=== PATIENT | male | born 1960 | race African-American/Black ===

== ENCOUNTER 2018-07-14 10:48 | Emergency (ER) | payer SELFPAY ==
[~2018-07-14] VITALS: Ht 165.1 cm; Wt 61.0 kg
[2018-07-14 12:54] VITALS: BP 97/51
== END 2018-07-14 12:56 | disposition home or self-care (01) ==
LOC: ER 11:09
DX: Z76.0 Encounter for issue of repeat prescription (principal); G89.29 Other chronic pain; I69.354 Hemiplegia and hemiparesis following cerebral infarction affecting left non-dominant side; R03.0 Elevated blood-pressure reading, without diagnosis of hypertension; F12.90 Cannabis use, unspecified, uncomplicated
CPT/HCPCS: 99283

== ENCOUNTER 2023-11-13 19:08 | Emergency (ER) | payer MEDICARE, BC ==
[~2023-11-13] VITALS: Ht 175.3 cm; Wt 73.0 kg
[2023-11-13 19:23] VITALS: TEMP 98.6; O2SAT 98
[2023-11-14 00:30] VITALS: BP 108/69; PULSE 91; RESP 18
[2023-11-14] MEDS ORDERED: HYDROCODONE/ACETAMINOPHEN 5/325MG TABLET PO ONE (00:30)
[2023-11-14] MEDS ORDERED: NAPR500T7 MT (00:33)
== END 2023-11-14 01:28 | disposition home or self-care (01) ==
LOC: ER 19:08
DX: M79.602 Pain in left arm (principal); G89.29 Other chronic pain; F12.10 Cannabis abuse, uncomplicated; Z86.73 Personal history of transient ischemic attack (TIA), and cerebral infarction without residual deficits
CPT/HCPCS: 99283

== ENCOUNTER 2023-12-22 23:19 | Inpatient (IN) | payer MEDICARE, MEDICAID ==
[~2023-12-22] VITALS: Ht 167.6 cm; Wt 53.5 kg
[~2023-12-22 23:19] MED LIST: NAPR500T7 MT
[2023-12-22] MEDS ORDERED: ONDANSETRON HCL 4MG/2ML INJ IV STA (23:26)
[2023-12-22] MEDS ORDERED: PANTOPRAZOLE SODIUM 40 MG/VIAL IV ONE (23:30)
[2023-12-22] MEDS ORDERED: SODIUM CHLORIDE 0.9% 1,000 ML IV ONE (23:30)
[2023-12-22 23:47] LABS: HEMOGLOBIN. 9.6 g/dL (14.0-18.0); MEAN CORPUSCULAR HEMOGLOBIN 31.8 pg (28.0-32.0); MEAN CORPUSCULAR VOLUME 96.2 fL (80.0-94.0); MEAN PLATELET VOLUME 9.9 fl (7.4-10.4); PLATELET 200 x1000/uL (130-400); RED BLOOD CELL COUNT 3.01 mill/uL (4.7-6.1); WHITE BLOOD COUNT 4.5 x1000/uL (4.5-11.0)
[2023-12-22 23:56] LABS: INR 1.2; PROTHROMBIN TIME 12.7 sec (9.6-11.0)
[2023-12-23 00:02] LABS: ALANINE AMINOTRANSFERASE < 7 IU/L (10-49); ALBUMIN 3.3 g/dL (3.2-4.8); ASPARTATE AMINOTRANSFERASE 16 IU/L (<34); BILIRUBIN TOTAL 0.5 mg/dL (0.1-1.0); CALCIUM 7.8 mg/dL (8.7-10.4); CARBON DIOXIDE 28 mEq/L (21-32); CHLORIDE 100 mEq/L (98-107); ETHANOL BLOOD < 10 mg/dL (<10); GLUCOSE 70 mg/dL (70-105); POTASSIUM 3.2 mEq/L (3.5-5.1); PROTEIN TOTAL 6.9 g/dL (6.0-8.3); SODIUM 135 mEq/L (136-145); UREA NITROGEN BLOOD 7 mg/dL (9-23)
[2023-12-23 00:07] LABS: DIFFERENTIAL COMMENT 1
[2023-12-23 01:01] LABS: PLATELET ESTIMATE NORMAL
[2023-12-23] MEDS ORDERED: MORPHINE SULFATE 4 MG/ML CPJ (NOT FOR IM USE) IV NR (01:30)
[2023-12-23 01:37] LABS: AMYLASE 182 IU/L (30-118)
[2023-12-23] MEDS ORDERED: ACETAMINOPHEN 650MG/20.3ML UDC GT PRN (05:00)
[2023-12-23] MEDS ORDERED: IPRATROPIUM/ALBUTEROL 0.5-3(2.5)MG/3ML NEB HHN PRN (05:00)
[2023-12-23] MEDS ORDERED: ONDANSETRON HCL 4MG/2ML INJ IV PRN (05:00)
[2023-12-23] MEDS: SODIUM CHLORIDE 0.9% 1,000 ML IV SCH ×3 (05:00→21:51)
[2023-12-23] MEDS: KCL 20MEQ/100ML PREMIX 100 ML IV SCH ×3 (05:30→15:59)
[2023-12-23] MEDS ORDERED: PANTOPRAZOLE SODIUM 40 MG/VIAL IV NR (05:30)
[2023-12-23] MEDS ORDERED: ONDANSETRON HCL 4MG/2ML INJ IV NR (05:30)
[2023-12-23] MEDS ORDERED: IOHEXOL-300 100 ML BOTTLE ONE (06:37)
[2023-12-23 06:51] LABS: IRON 150 ug/dL (65-175); PHOSPHORUS 3.7 mg/dL (2.5-4.9); TOTAL IRON BINDING CAPACITY 175 ug/dl (250-425)
[2023-12-23 07:06] LABS: FERRITIN 276 ng/mL (22-322); FOLIC ACID (FOLATE) SERUM 5.71 ng/mL (>5.38); TROPONIN I HIGH SENSITIVITY < 4 ng/L (3.0-53); VITAMIN B12 SERUM 743 pg/mL (211-911)
[2023-12-23 08:21] LABS: CLARITY URINE CLEAR (CLEAR); COLOR URINE YELLOW (YELLOW); GLUCOSE URINE NEGATIVE (NEGATIVE); KETONES URINE NEGATIVE (NEGATIVE); LEUKOCYTE ESTERASE URINE NEGATIVE (NEGATIVE); NITRITE URINE NEGATIVE (NEGATIVE); OCCULT BLOOD URINE NEGATIVE (NEGATIVE); PH URINE 7.5 (4.5-8.0); PROTEIN URINE NEGATIVE (NEGATIVE); SPECIFIC GRAVITY URINE 1.014 (1.005-1.030)
[2023-12-23 09:01] LABS: *AMPHETAMINES SCREEN URINE NEGATIVE (NEGATIVE); *BARBITURATES SCREEN URINE NEGATIVE (NEGATIVE); *BENZODIAZEPINES SCREEN URINE NEGATIVE (NEGATIVE); *COCAINE SCREEN URINE NEGATIVE (NEGATIVE); CANNABINOID URINE SCREEN NEGATIVE (NEGATIVE); ECSTASY MDMA SCREEN URINE NEGATIVE (NEGATIVE); METHADONE URINE SCREEN Neg (NEGATIVE); OPIATES URINE SCREEN PRESUMPTIVE POSITIVE (NEGATIVE); PHENCYCLIDINE URINE SCREEN NEGATIVE (NEGATIVE)
[2023-12-23] MEDS: PANTOPRAZOLE SODIUM 40 MG/VIAL IV SCH ×2 (09:47→17:10)
[2023-12-23] MEDS: ENOXAPARIN 40MG/0.4ML SYR SUBCUT SCH (09:47)
[2023-12-23] MEDS ORDERED: NALOXONE HCL 0.4MG/ML VIAL IV PRN (14:15)
[2023-12-23] MEDS ORDERED: MAGNESIUM 2 G PREMIX 50 ML IV SCH (15:00)
[2023-12-23] MEDS: HYDROCODONE/ACETAMINOPHEN 5/325MG TABLET PO PRN ×2 (15:40→21:44)
[2023-12-23 17:37] LABS: TROPONIN I HIGH SENSITIVITY < 4 ng/L (3.0-53)
[2023-12-23 20:00] VITALS: BP 109/80; PULSE 73; RESP 18; TEMP 97.7
[2023-12-23 21:56] VITALS: BP 118/70; PULSE 76; RESP 16; TEMP 98.1
[2023-12-24] VITALS: BP 111/61; PULSE 78; RESP 18; TEMP 97.7
[2023-12-24 04:00] VITALS: BP 109/71; PULSE 82; RESP 20; TEMP 96.6
[2023-12-24] MEDS: SODIUM CHLORIDE 0.9% 1,000 ML IV SCH ×3 (05:00→20:59)
[2023-12-24] MEDS: HYDROCODONE/ACETAMINOPHEN 5/325MG TABLET PO PRN ×3 (06:51→21:01)
[2023-12-24 08:00] VITALS: BP 117/71; PULSE 76; RESP 20; TEMP 98.9
[2023-12-24] MEDS: PANTOPRAZOLE SODIUM 40 MG/VIAL IV SCH ×2 (09:34→17:00)
[2023-12-24] MEDS: ENOXAPARIN 40MG/0.4ML SYR SUBCUT SCH (09:34)
[2023-12-24 12:00] VITALS: BP 97/66; PULSE 85; RESP 20; TEMP 98.1
[2023-12-24 16:00] VITALS: BP 118/64; PULSE 77; RESP 20; TEMP 98.6
[2023-12-24 16:03] LABS: HEMOGLOBIN. 8.8 g/dL (14.0-18.0); MEAN CORPUSCULAR HEMOGLOBIN 31.1 pg (28.0-32.0); MEAN CORPUSCULAR HGB CONC 32.5 g/dL (31.0-37.0); MEAN CORPUSCULAR VOLUME 95.7 fL (80.0-94.0); MEAN PLATELET VOLUME 10.2 fl (7.4-10.4); PLATELET 180 x1000/uL (130-400); RED BLOOD CELL COUNT 2.83 mill/uL (4.7-6.1); RED CELL DISTRIBUTION WIDTH 22.3 % (11.6-14.6); WHITE BLOOD COUNT 4.1 x1000/uL (4.5-11.0)
[2023-12-24 16:05] LABS: DIFFERENTIAL COMMENT 1
[2023-12-24 16:23] LABS: CARBON DIOXIDE 23 mEq/L (21-32); CHLORIDE 106 mEq/L (98-107); CHOLESTEROL 132 mg/dL (<200); CREATININE 1.2 mg/dL (0.6-1.3); GLUCOSE 72 mg/dL (70-105); HDL CHOLESTEROL 57 mg/dL (>55); LDL CHOLESTEROL 53 mg/dL (5-100); POTASSIUM 4.4 mEq/L (3.5-5.1); SODIUM 137 mEq/L (136-145); THYROID STIMULATING HORMONE 4.66 uIU/mL (0.55-4.78); TRIGLYCERIDE 84 mg/dL (0-150); UREA NITROGEN BLOOD 7 mg/dL (9-23)
[2023-12-24 16:30] LABS: ANISOCYTOSIS 2+; PLATELET ESTIMATE NORMAL
[2023-12-24 20:00] VITALS: BP 126/65; PULSE 70; RESP 17; TEMP 97.9
[2023-12-25] VITALS: BP 119/76; PULSE 71; RESP 17; TEMP 98.1
[2023-12-25 04:00] VITALS: BP 123/77; PULSE 66; RESP 17; TEMP 97.8
[2023-12-25] MEDS: SODIUM CHLORIDE 0.9% 1,000 ML IV SCH (05:20)
[2023-12-25] MEDS: HYDROCODONE/ACETAMINOPHEN 5/325MG TABLET PO PRN (06:44)
[2023-12-25] MEDS ORDERED: PANT40TA51 PO (07:58)
[2023-12-25 08:18] VITALS: TEMP 98.4
[2023-12-25 08:31] VITALS: BP 128/84; PULSE 86; TEMP 98.4; O2SAT 99
== END 2023-12-25 09:25 | disposition home or self-care (01) | DRG 392 ==
LOC: ER 23:19 → 5WST 12-23 04:05 → 6WST 12-23 18:15
PROVIDERS: ADMIT Internal Medicine; ATTEND Internal Medicine
DX: K20.90 Esophagitis, unspecified without bleeding (principal); Z59.00 Homelessness unspecified; F12.10 Cannabis abuse, uncomplicated; E87.6 Hypokalemia; D50.9 Iron deficiency anemia, unspecified; F10.90 Alcohol use, unspecified, uncomplicated; M19.09 Primary osteoarthritis, other specified site; Z86.73 Personal history of transient ischemic attack (TIA), and cerebral infarction without residual deficits; Z79.899 Other long term (current) drug therapy; Y90.0 Blood alcohol level of less than 20 mg/100 ml
CPT/HCPCS: 36415; 74177; 80048; 80053; 80061; 80305; 80320; 81003; 82150; 82607; 82728; 82746; 83540; 83550; 83605; 83735; 84100; 84443; 84484; 85025; 97161; 97166; 99285; C9113; J1650; J2270; J2405; J3475; J3480; J7030; Q9967; G0480

== ENCOUNTER 2024-02-03 18:42 | Emergency (ER) | payer MEDICARE, MEDICAID ==
[~2024-02-03] VITALS: Ht 177.8 cm; Wt 64.0 kg
[~2024-02-03 18:42] MED LIST changes: -NAPR500T7 MT; +PANT40TA51 PO
[2024-02-03 18:45] VITALS: O2SAT 99
[2024-02-03] MEDS: HYDROCODONE/ACETAMINOPHEN 5/325MG TABLET PO STA (21:05)
[2024-02-03] MEDS ORDERED: HYDR-4001 MT (23:14)
[2024-02-03] MEDS ORDERED: NAPR-681 MT (23:14)
[2024-02-04 01:48] VITALS: BP 108/70; PULSE 98; RESP 18; TEMP 98.6
[2024-02-04] MEDS: HYDROCODONE/ACETAMINOPHEN 5/325MG TABLET PO NR (01:57)
== END 2024-02-03 21:15 | disposition home or self-care (01) ==
LOC: ER 18:42
DX: G89.29 Other chronic pain (principal); Z76.0 Encounter for issue of repeat prescription; Z86.73 Personal history of transient ischemic attack (TIA), and cerebral infarction without residual deficits
CPT/HCPCS: 99283